=== PATIENT | female | born 1985 | race American Indian/Alaskan Native ===

== ENCOUNTER 2018-01-24 19:53 | Outpatient (CLI) | payer MEDICAID ==
[2018-01-24] MEDS ORDERED: LACTATED RINGERS 500 ML IV ONE (22:15)
[2018-01-24 22:18] LABS: Bilirubin,Urine NEG (Negative); Blood,Urine MOD (Negative); Color,Urine Yellow (Yellow); Mucus,Urine FEW /HPF; Protein,Urine <15 mg/dL mg/dL (Negative); Urobilinogen,Urine < 2.0 mg/dL (<2.0)
[2018-01-24] MEDS ORDERED: LACTATED RINGERS 1,000 ML IV SCH (23:00)
[2018-01-24] MEDS ORDERED: BRETHINE SUB-Q ONE (23:49)
--- NOTE | 2018-01-25 | Ultrasound Report ---
FINAL REPORT EXAM: US OB LIMITED HISTORY: vaginal bleeding TECHNIQUE: Ultrasound obstetrical transabdominal PRIORS: None. FINDINGS: Single live intrauterine gestation is present in cephalic presentation. heart rate is 152 beats per minute The placenta is grade 1 and anterior. No evidence for abruption. biometric measurements were not obtained IMPRESSION: Single live intrauterine gestation Anterior placenta
[2018-01-25 05:30] VITALS: BP 109/67
== END 2018-01-25 01:30 | disposition home or self-care (01) ==
LOC: TRG 19:53 → LD 20:05 → TRG 01-25 01:30
PROVIDERS: ATTEND Obstetrics & Gynecology
DX: O46.93 Antepartum hemorrhage, unspecified, third trimester (principal); Z3A.30 30 weeks gestation of pregnancy
CPT/HCPCS: 36415; 59025; 76815; 81001; 82731; 96360; 96361; J3105; J7120

== ENCOUNTER 2018-03-10 22:52 | Inpatient (IN) | payer MEDICAID ==
[2018-03-11] MEDS ORDERED: ZOFRAN IV PRN ×2 (00:20→03:40)
[2018-03-11] MEDS ORDERED: PHENERGAN PO PRN ×2 (00:20→03:40)
[2018-03-11] MEDS ORDERED: XYLOCAINE 2% INFILTRATI ONE (00:20)
[2018-03-11] MEDS ORDERED: BRETHINE IVP PRN (00:20)
[2018-03-11] MEDS ORDERED: STADOL IV PRN (00:20)
[2018-03-11] MEDS ORDERED: MINERAL OIL PO PRN (00:20)
[2018-03-11] MEDS ORDERED: BRETHINE SUB-Q PRN (00:20)
[2018-03-11] MEDS ORDERED: SUBLIMAZE IV PRN (00:20)
[2018-03-11] MEDS ORDERED: ePHEDrine SULFATE IV PRN (00:20)
--- NOTE | 2018-03-11 00:27 | History and Physical Report ---
History of Present Illness Date of examination: 03/11/18 Chief complaint: SROM History of present illness: Pt is a 33yo BF EDC 03/29/18; EGA 37 2/7 weeks presents to L&D complaining of SROM clear fluid @ 10pm followed by RUC's q 3-4 mins. She received care at [facility] since 13 weeks and course has been unremarkable except for low lying placenta. records are available and GBS is Positive. Past History Past Medical History: no pertinent history Past Surgical History: no surgical history [employer] History: abnormal PAP smear, herpes Family/Genetic History: none, cancer Social history: no significant social history, single - Obstetrical History Expected Date of Delivery: 03/29/18 Actual Gestation: 37 Week(s) 3 Day(s) : 4 Medications and Allergies Allergies Allergy/AdvReac Type Severity Reaction Status Date / Time No Known Allergies Allergy Unverified 09/20/13 22:32 Home Medications Medication Instructions Recorded Confirmed Last Taken Type #103/Iron Fumarate/FA 1 each PO QDAY 09/21/13 09/21/13 Unknown History [ ] Active Meds: Active Medications Butorphanol Tartrate (Stadol) 2 mg IV Q2H PRN PRN Reason: Pain , Severe (7-10) Ephedrine Sulfate (Ephedrine Sulfate) 10 mg IV Q2M PRN PRN Reason: Hypotension Fentanyl (Sublimaze) 100 mcg IV Q2H PRN PRN Reason: Labor Pain Ampicillin Sodium (Ampicillin/Ns 1 Gm/50 Ml) 1 gm in 50 mls @ 100 mls/hr IV Q4HR ENDY; Protocol Ampicillin Sodium (Polycillin/Ns 2 Gm/100 Ml) 2 gm in 100 mls @ 100 mls/hr IV ONCE ONE; Protocol Stop: 03/11/18 01:19 Lactated Ringer's (Lactated Ringers) 1,000 mls @ 125 mls/hr IV DIRECT ENDY Oxytocin/Sodium Chloride (Pitocin/Ns 20 Unit/1000ml Drip) 20 units in 1,000 mls @ 125 mls/hr IV DIRECT ENDY Oxytocin/Sodium Chloride (Pitocin/Ns 30 Unit/500ml) 30 units in 500 mls @ 4 mls /hr IV TITR ENDY; Protocol Oxytocin/Sodium Chloride (Pitocin/Ns 30 Unit/500ml) 30 units in 500 mls @ 1 mls /hr IV TITR ENDY; Protocol Lidocaine (Xylocaine 2%) 20 ml INFILTRATI ONCE ONE Stop: 03/11/18 00:21 Mineral Oil (Mineral Oil) 30 ml PO QHS PRN PRN Reason: Constipation Ondansetron HCl (Zofran) 4 mg IV Q8H PRN PRN Reason: Nausea And Vomiting Promethazine HCl (Phenergan) 25 mg PO Q6H PRN PRN Reason: Nausea And Vomiting Terbutaline Sulfate (Brethine) 0.25 mg SUB-Q ONCE PRN PRN Reason: Hyperstimulation/Hypertonicity Terbutaline Sulfate (Brethine) 0.25 mg IVP ONCE PRN PRN Reason: Hyperstimulation/Hypertonicity Review of Systems All systems: negative - Vital Signs Vital signs: Vital Signs Pulse Pulse Ox 93 H 97 03/10/18 23:14 03/10/18 23:14 Temp Pulse Resp BP Pulse Ox 92 H 96 03/11/18 00:14 03/11/18 00:14 - Physical Exam Breasts: Positive: deferred Cardiovascular: Regular rate Lungs: Positive: Clear to auscultation Abdomen: Positive: normal appearance Genitourinary (Female): Positive: normal external genitalia Vagina: Positive: normal moisture Uterus: Positive: enlarged Extremities: Positive: normal - Obstetrical FHR: category 1 Uterine Contraction Monitor Mode: External Cervical Dilatation: 4 Cervical Effacement Percentage: 70 station: -2 Uterine Contraction Pattern: Regular Uterine Tone Measurement Phase: Contraction Uterine Contraction Intensity: Moderate Results Result Diagrams: 03/11/18 00:30 All other labs normal. Assessment and Plan - Patient Problems (1) 37 weeks gestation of Onset Date: 03/11/18 Current Visit: Yes Status: Acute Plan to address problem: A: IUP @ 37 3/7 weeks in labor +GBS P: Admit to L&D for expectant vaginal delivery IV Ampicillin (2) GBS (group B streptococcus) infection Onset Date: 03/11/18 Current Visit: Yes Status: Acute
[2018-03-11 00:52] LABS: Hematocrit 35.8 % (30.3-42.9); Hemoglobin 11.9 gm/dl (10.1-14.3); Mean Corpuscular HGB Conc 33 % (30-34); Mean Corpuscular Hemoglobin 28 pg (28-32); Mean Corpuscular Volume 84 fl (79-97); Platelet Count 197 K/mm3 (140-440); Red Blood Count 4.28 M/mm3 (3.65-5.03); Red Cell Distribution Width 12.8 % (13.2-15.2)
[2018-03-11] MEDS ORDERED: LACTATED RINGERS 1,000 ML IV SCH (01:00)
[2018-03-11] MEDS ORDERED: POLYCILLIN/NS 2 GM/100 ML 2 GM/100 ML BAG IV ONE (01:00)
[2018-03-11] MEDS ORDERED: PITOCin/NS 20 UNIT/1000ML DRIP 20 UNITS/1,000 ML BAG IV SCH ×2 (01:00→04:00)
[2018-03-11] MEDS ORDERED: PITOCin/NS 30 UNIT/500ML 30 UNITS/500 ML BAG IV SCH ×2 (01:00)
--- NOTE | 2018-03-11 03:38 | Procedure Note ---
OB Delivery Note - Delivery Date of Delivery: 03/11/18 Surgeon: YAZMIN COOLEY Estimated blood loss: 100cc - Vaginal Delivery presentation: vertex Delivery position: OA Intrapartum events: PROM->1hr before delivery, precipitous labor- <3hr Delivery induction: none Delivery augmentation: pitocin Delivery monitor: external FHT, external uterine Route of delivery: Delivery placenta: spontaneous Delivery cord: 3 umbilical vessels Episiotomy: none Delivery laceration: none Anesthesia: none Delivery comments: Infant delivered OA and placed on Mom's chest for [id number] bonding and delayed cord clamping, cut by Dad - A at 1 minute: 8 at 5 minutes: 9 Infant Gender: Female (2434gms)
[2018-03-11] MEDS ORDERED: LANSINOH TP PRN (03:40)
[2018-03-11] MEDS ORDERED: TYLENOL PO PRN (03:40)
[2018-03-11] MEDS ORDERED: BENADRYL PO PRN (03:40)
[2018-03-11] MEDS ORDERED: PHENERGAN PR PRN (03:40)
[2018-03-11] MEDS ORDERED: TUCKS PAD TP PRN (03:40)
[2018-03-11] MEDS ORDERED: SODIUM CHLORIDE FLUSH SYRINGE 10 ML IV NR (04:00)
[2018-03-11] MEDS ORDERED: AMPICILLIN/NS 1 GM/50 ML 1 GM/50 ML BAG IV SCH (05:00)
[2018-03-11] MEDS: NORCO 5/325 PO PRN ×2 (06:02→17:09)
[2018-03-11] MEDS: MOTRIN PO SCH ×2 (06:02→17:10)
[2018-03-11] MEDS: COLACE PO SCH ×2 (09:47→22:16)
[2018-03-11] MEDS: FEOSOL PO SCH ×2 (09:47→22:16)
[2018-03-11] MEDS: PRENATAL VITAMIN PO SCH (09:47)
[2018-03-11] MEDS ORDERED: DULCOLAX PR PRN (10:00)
[2018-03-11 19:33] LABS: Hemoglobin 11.8 gm/dl (10.1-14.3)
[2018-03-11] MEDS ORDERED: MILK OF MAGNESIA PO PRN (22:00)
[2018-03-12] MEDS: MOTRIN PO SCH ×4 (00:01→22:00)
[2018-03-12] MEDS: NORCO 5/325 PO PRN (00:02)
[2018-03-12] MEDS ORDERED: BOOSTRIX IM ONE (06:00)
[2018-03-12] MEDS ORDERED: M-M-R II VACCINE SUB-Q ONE (10:00)
[2018-03-12] MEDS: FEOSOL PO SCH ×2 (10:38→22:00)
[2018-03-12] MEDS: PRENATAL VITAMIN PO SCH (10:38)
[2018-03-12] MEDS: COLACE PO SCH ×2 (10:40→22:00)
--- NOTE | 2018-03-12 13:18 | Progress Note ---
Assessment and Plan A: day 1. P: Plan to discharge pt. home tomorrow. Pt. states she has known for over 4 years that she has a heart murmur but has never had work up or seen cardiology. Advised pt. to have cardiology visit as an outpt. Will order for pt. at her next office visit. Pt. plans to have Depo Provera injection for contraception prior to hospital discharge tomorrow. Subjective - Subjective Date of service: 03/12/18 Principal diagnosis: day 1 s/p Interval history: Patient is doing well. Bottlefeeding. Reports small amount of lochia. Denies pain. Voiding without difficulty and ambulating well. Tolerating a regular diet without nausea or vomiting. Patient wants to use Depo Provera for control at hospital discharge tomorrow. Patient reports: appetite normal, voiding normally, pain well controlled, flatus , ambulating normally [place]: doing well Objective - Vital Signs Latest vital signs: Vital Signs Temp Pulse Resp BP BP Pulse Ox 03/12/18 07:50 75 03/12/18 07:48 98.4 F 18 109/62 03/12/18 01:53 97.6 F 70 18 118/60 99 03/11/18 16:11 98.2 F 69 18 120/85 99 Intake and Output 03/11/18 03/12/18 03/12/18 23:59 07:59 15:59 Intake Total 960 120 240 Balance 960 120 240 Intake: Oral 360 240 Intake, Free Water 600 120 Other: Total, Intake Amount 360 240 # Voids Void 1 1 1 - Exam Cardiovascular: Present: Regular rate, Normal S1, Normal S2, Other (murmur heard ) Lungs: Present: Clear to auscultation Abdomen: Present: normal appearance, soft, normal bowel sounds. Absent: distention, tenderness, guarding, rigidity Uterus: Present: normal, firm, fundal height below umbilicus. Absent: bogginess , tenderness Extremities: Present: normal. Absent: tenderness, edema
[2018-03-13 08:59] VITALS: BP 114/64
[2018-03-13] MEDS: FEOSOL PO SCH (10:27)
[2018-03-13] MEDS: PRENATAL VITAMIN PO SCH (10:27)
[2018-03-13] MEDS: COLACE PO SCH (10:27)
[2018-03-13] MEDS: MOTRIN PO SCH (10:27)
--- NOTE | 2018-03-13 10:41 | Progress Note ---
Assessment and Plan A: day 2 S/P spontaneous vaginal delivery. Heart murmur (pt. states longstanding). Contraception. P: Patient to receive Depo Provera 150 mg IM prior to hospital discharge today. Pt. is to follow up outpatient with cardiology for further evaluation of heart murmur. Discussed with patient discharge instructions and warning signs. Pt. to continue PNV and iron supplement. Advised pt. to avoid IC for 6 weeks. Advised pt. to avoid strenuous exercise and heavy lifting. Symptoms of depression discussed with pt. Advised pt. to follow up with [facility] in 4-6 weeks for exam. Pt. voiced understanding of instructions. Subjective - Subjective Date of service: 03/13/18 Principal diagnosis: day 2 s/p Interval history: day 2. Patient is doing well. Bottlefeeding and . Pt. reports small amount of lochia. Denies pain. Voiding without difficulty and ambulating well. Tolerating a regular diet without nausea or vomiting. Patient wants to use Depo Provera for control. Patient denies headache, visual disturbance, cough, shortness of breath, chest pain, abdominal pain, leg pain, heavy vaginal bleeding, or symptoms of depression. Pt. desires discharge today. Patient reports: appetite normal, voiding normally, pain well controlled, flatus , ambulating normally [place]: doing well Objective - Vital Signs Latest vital signs: Vital Signs Temp Pulse Resp BP BP Pulse Ox 03/13/18 08:00 18 03/13/18 07:36 98.0 F 66 18 114/64 99 03/13/18 00:00 98.0 F 80 18 121/77 03/12/18 16:30 76 03/12/18 16:28 97.4 F L 18 104/76 Intake and Output 03/12/18 03/13/18 03/13/18 23:59 07:59 15:59 Intake Total 780 Balance 780 Intake: Oral 780 Other: Total, Intake Amount 240 # Voids Void 1 - Exam Breasts: Present: normal Cardiovascular: Present: Regular rate, Other (murmur heard) Lungs: Present: Clear to auscultation Abdomen: Present: normal appearance, soft. Absent: distention, tenderness, guarding, rigidity Uterus: Present: normal, firm, fundal height below umbilicus. Absent: bogginess , tenderness Extremities: Present: normal. Absent: tenderness, edema
[2018-03-13] MEDS ORDERED: DEPO-PROVERA (CONTRACEPTION) IM ONE (10:44)
--- NOTE | 2018-03-13 10:48 | Discharge Summary ---
Providers - Providers Date of Admission: 03/11/18 00:23 Date of discharge: 03/13/18 Attending physician: MAYE VANEGAS MD None Primary care physician: MAYE VANEGAS MD Hospitalization Reason for admission: active labor Delivery: Episiotomy: none Laceration: none Other procedures: none complications: none Discharge diagnosis: IUP at term delivered baby: female Pertinent studies: Labs Hospital course: Normal hospital course Condition at discharge: Good Disposition: DC-01 TO HOME OR SELFCARE - Discharge Diagnoses (1) Term delivered Status: Acute Plan - Provider Discharge Summary Activity: routine, no sex for 6 weeks, no heavy lifting 4 weeks, no strenuous exercise Diet: routine Instructions: routine Additional instructions: Call your doctor immediately for: * Fever > 100.5 * Heavy vaginal bleeding ( >1 pad per hour) * Severe persistent headache * Shortness of breath * Reddened, hot, painful area to leg or breast - Follow up plan Follow up: MAYE VANEGAS MD [Primary Care Provider] - 6 Weeks Forms: [facility] Discharge Summary
== END 2018-03-13 14:30 | disposition home or self-care (01) | DRG 775 ==
LOC: TRG 22:52 → LD 03-11 00:23 → OB 03-11 05:22
PROVIDERS: ADMIT Obstetrics & Gynecology; ATTEND Obstetrics & Gynecology
PROC: 10E0XZZ Delivery of Products of Conception, External Approach (ICD-10-PCS; principal; 2018-03-11)
PROC: 3E0234Z Introduction of Serum, Toxoid and Vaccine into Muscle, Percutaneous Approach (ICD-10-PCS; 2018-03-12)
DX: O99.824 Streptococcus B carrier state complicating childbirth (principal); O62.3 Precipitate labor; O42.92 Full-term premature rupture of membranes, unspecified as to length of time between rupture and onset of labor; Z3A.37 37 weeks gestation of pregnancy; Z37.0 Single live birth; Z23 Encounter for immunization
CPT/HCPCS: 36415; 85014; 85018; 85027; 86592; 86850; 86900; 86901; 88307; J0290; J0595; J1050; J2590; J7120